=== PATIENT | male | born 1985 | race Caucasian/White ===

== ENCOUNTER 2017-01-04 17:52 | Emergency (ER) | payer OTHER ==
--- NOTE | 2017-01-04 18:33 | DIAGNOSTIC IMAGING REPORT ---
PROCEDURE: XR CHEST 1 VIEW INDICATION: CHEST PAIN TECHNIQUE: Portable AP view 06:25 p.m. COMPARISON: None. FINDINGS: Lungs are clear. Median sternotomy. Heart size, mediastinum and pulmonary vessels are normal. Thorax is normal. IMPRESSION: 1. Median sternotomy. 2. No acute changes
--- NOTE | 2017-01-04 19:05 | ED NURSING NOTES ---
Clinical Report - Nurses [facility] [address] [place] [address] 01/04/2017 17:53 Patient: SPARKLE AGGARWAL TRIAGE Triage time 17:58. Acuity: LEVEL 3. Chief Complaint: CHEST PAIN and DISCOMFORT and (At night, having pain. Having numbess and tingling in the fingers). Alert. No acute distress. --18:06 Muna Yates R.N. 18:00 01/04/17. BP: 141/77. HR: 82. RR: 20. O2 saturation: 98% on room air. Temp: 97.5 F. Pain level now: 03/07. --18:06 Muna Yates R.N. 18:00 01/04/17. BP: 141/77. HR: 82. RR: 20. O2 saturation: 98% on room air. Temp: 97.5 F. Pain level now: 03/07. --18:06 Muna Yates R.N. Weight: 104.3 kg stated. Height/Length: 70 inches Per Patient. BMI: 33. --18:00 Muna Yates R.N. Medications Lisinopril Oral (forget to take). Metoprolol Tartrate Oral not taking for last 2 years . --18:05 Muna Yates R.N. Allergies Morphine and Related. --18:06 Muna Yates R.N. History Arrived by private vehicle. Historian: patient. No primary care physician. This is a recurrent problem. Started while sleeping. He has had difficulty breathing and nausea. No vomiting. 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 PAST MEDICAL HX: Immunizations: status is unknown. SOCIAL HX: Smoker- current status unknown. Occasional alcohol use. History of drug use: marijuana. Recently used drugs yesterday. FALL RISK ASSESSMENT: Fall risk assessment completed. No fall risk identified. NUTRITIONAL RISK ASSESSMENT: The nutritional risk assessment revealed no deficiencies. FUNCTIONAL ASSESSMENT: Functional assessment: no impairments noted. LEARNING NEEDS ASSESSMENT: The learning needs assessment revealed no barriers. SKIN INTEGRITY ASSESSMENT: Skin integrity risk assessment completed. No skin integrity risk identified. --18:06 Muna Yates R.N. PROBLEMS: Heart Disease. --18:03 Muna Yates R.N. ADDITIONAL SURGERIES: Heart surg x 3 . --18:03 Muna Yates R.N. Interventions ID band on patient. To room. --18:06 Muna Yates R.N. PHYSICAL ASSESSMENT Ambulatory to room. Patient gowned. GENERAL / NEURO / PSYCH: Alert. Oriented X 4. Appears in pain and anxious. HEENT: Mucous membranes are pink. RESPIRATORY: Respirations not labored. CVS: Normal sinus rhythm noted. Cardiac rhythm: normal sinus rhythm; (80). Pulses within normal limits. Capillary refill less than 2 seconds. GI / : Abdomen nontender. SKIN: Skin is warm and dry. Normal skin turgor. Skin is non-tender. --18:07 Muna Yates R.N. NURSING PROGRESS NOTES compliance monitor, pulse oximeter and NIBP monitor placed on patient; conveyor monitor- Lead II; monitor alarms on. Patient gowned. Head of bed elevated. Two patient identifiers checked. Call light placed in reach. Side rails up x 1. Bed placed in lowest position. Brakes of bed on. Patient ready for evaluation. --18:07 Muna Yates R.N. 18:17 01/04/2017 Site #1 started via IV in the left upper arm with an 20g angiocath, with aseptic technique and good blood return; one attempt. Blood drawn: rainbow set. Labeled in the presence of the patient and sent to the lab. Saline lock flushed with 10 mL saline. --18:32 Muna Yates R.N. 18:39 01/04/2017 Toradol IVP 30 mg given over 1 minute(s) via site #1. Allergies verified and confirmed 5 rights. IV patency established. IV site checked: no pain, redness, or swelling. IV flushed thoroughly pre- and post-medication administration. IVP given by RN. --18:39 Muna Yates R.N. 18:39 01/04/17. BP: 136/87. HR: 78. RR: 20. O2 saturation: 98% on room air. 18:00 01/04/17. BP: 141/77. HR: 82. RR: 20. O2 saturation: 98% on room air. Temp: 97.5 F. Pain level now: 03/07. --18:39 Muna Yates R.N. EKG time: (1801). EKG was ordered, performed by a tech and shown to the ED physician. --18:43 Heather Maxwell, ER Tech1. DISPOSITION / DISCHARGE 19:15. Condition at departure: improved. No learning barriers present. Discharge instructions provided and reviewed with the patient. Patient verbalized understanding. Written instructions provided in Chilean. The patient was discharged home. He left the Emergency Department ambulatory and via private vehicle. Patient driving. Medication list reviewed and validated. --19:21 Muna Yates R.N. 19:19 01/04/17. BP: 118/69. HR: 78. RR: 18. O2 saturation: 99%. Temp: deferred. Pain level now: 09/07. 18:39 01/04/17. BP: 136/87. HR: 78. RR: 20. O2 saturation: 98% on room air. 18:00 01/04/17. BP: 141/77. HR: 82. RR: 20. O2 saturation: 98% on room air. Temp: 97.5 F. Pain level now: 03/07. --19:21 Muna Yates R.N. Locked/Released at 01/04/2017 19:22 by Muna Yates R.N.
--- NOTE | 2017-01-04 19:05 | ED CLINICAL REPORT ---
Clinical Report - Physicians/Mid Levels [facility] [address] [place] [address] 01/04/2017 17:53 Patient: SAPRKLE AGGARWAL Time Seen: 1808; initial patient contact, initial documentation, patient care assumed. Arrived- By private vehicle. Historian- patient. HISTORY OF PRESENT ILLNESS Chief Complaint: CHEST PAIN and DISCOMFORT. At its maximum, severity described as moderate. When seen in the E.D., severity described as moderate. Modifying factors- worsened by exertion and movement. Not relieved by anything. This started about 2 weeks ago and is still present. It was abrupt in onset and has been waxing/waning. Onset during sleep. It is described as pressure and tightness and it is described as located in the central chest area. No radiation. No nausea, vomiting or diaphoresis. He has had mild difficulty breathing on exertion. Similar symptoms previously: Recent medical care: Not recently seen/assessed. REVIEW OF SYSTEMS No fever, chills or pedal edema. He has had a cough productive of scant amounts of sputum (for 6 weeks ago). All systems otherwise negative, except as recorded above. PAST HISTORY See nurses notes. PROBLEMS: Heart Disease. --18:03 Muna Yates R.N. ADDITIONAL SURGERIES: Heart surg x 3 . --18:03 Muna Yates R.N. SOCIAL HISTORY Former smoker (says he quit smoking 6 wks ago). Occasional alcohol use. History of occasional drug use: marijuana. No recent travel. Is a local resident. FAMILY HISTORY Negative. ADDITIONAL NOTES The nursing notes have been reviewed with agreement regarding the chief complaint, HPI, ROS, PMH and patient medications and allergies. PHYSICAL EXAM Vital Signs: 01/04/2017 18:00 BP: 141/77. HR: 82. RR: 20. O2 saturation: 98%. Temp: 97.5 F. Pain level now: 7/10. Have been reviewed as normal and appear to be correct. Appearance: Alert. Oriented X3. No acute distress. Eyes: Pupils equal, round and reactive to light. Eyes normal inspection. Neck: Normal inspection. Neck supple. CVS: Normal heart rate and rhythm. Heart sounds normal. Pulses normal. Respiratory: No respiratory distress. Chest tender. Chest pain reproducible with palpation of the costal cartilage, sternum and anterior chest wall, with movement of the trunk and with deep breathing. Chest pain is not reproduced by palpation of the costochondral junction. Breath sounds normal. Back: Normal external inspection. Skin: Skin warm and dry. Normal skin color. No rash. Normal skin turgor. Extremities: Extremities exhibit normal ROM. No lower extremity edema. Neuro: Oriented X 3. No motor deficit. No sensory deficit. LABS, X-RAYS, AND EKG EKG: EKG time: (1800). No acute process. No acute ischemia. Normal EKG. Rate: 84. Normal EKG. (interpreted by dr puckett and reviewed by me). The EKG appears to be a good tracing. Interpretation time: 1802. Chest X-ray: Normal Chest X-Ray. (IMPRESSION: 1. Median sternotomy. 2. No acute changes Electronically Final signed by:Mukesh Pfeiffer MD 01/04/2017 6:33:00 PM). The X-rays were interpreted by the radiologist and contemporaneously by me. Interpretation time: 18:46. Laboratory Tests: CBC w Diff: (MARTHA: 01/04/2017 18:00) ( MsgRcvd 01/04/2017 18:33) Final results Test Result Flag Units (Reference) WHITE BLOOD COUNT 7.8 K/uL (4.5-11.5) RED BLOOD COUNT 4.43 L M/uL (4.50-5.90) HEMOGLOBIN 14.4 gm/dL (13.5-17.5) HEMATOCRIT 42.3 % (41.0-53.0) MEAN CELL VOLUME 95 fL (80-100) MEAN CORPUSCULAR HGB 32 pg (26-34) MEAN CORPUSCULAR HGB CONC 34 g/dL (31-37) RED CELL DISTRIBUTION WIDTH 13.4 % (11.6-14.8) PLATELET COUNT 264 K/uL (150-400) NEUTROPHIL % 59.1 % (50-75) LYMPH % 27.3 % (25-40) MONO % 11.5 % (3-14) EOSINOPHIL % 1.6 % (0-4) BASOPHIL % 0.5 % (0-2) CMP: (MARTHA: 01/04/2017 18:00) ( MsgRcvd 01/04/2017 18:47) Final results Test Result Flag Units (Reference) GLUCOSE 88 mg/dL (70-110) BUN 17 mg/dL (7-18) CREATININE 1.0 mg/dL (0.6-1.3) Estimated GFR >60 mL/min Estimated GFR- >60 mL/min Note: Persistent reduction over 3 months in eGFR<60 mL/min/1.73 m2 defines CKD. Patients with eGFR values>=60 mL/min/1.73 m2 may also have CKD if evidence ofpersistent proteinuria. Additional information may be foundat www.kidney.org. SODIUM 142 mmol/L (136-145) POTASSIUM 4.0 mmol/L (3.5-5.1) CHLORIDE 104 mmol/L (98-107) CARBON DIOXIDE 31 mmol/L (21-32) CALCIUM 8.5 mg/dL (8.5-10.1) TOTAL PROTEIN 7.4 g/dL (6.4-8.2) ALBUMIN 3.5 g/dL (3.3-5.0) BILIRUBIN, TOTAL 0.5 mg/dL (0.0-1.0) ALKALINE PHOSPHATASE 68 U/L (46-116) AST (SGOT) 25 U/L (15-37) ALT (SGPT) 52 U/L (12-78) CPK 217 U/L (24-260) TROPONIN I 0.07 ng/mL (0.00-1.5) TROPONIN REFERENCE RANGE:<0.1 NEGATIVE0.1-1.5 INDETERMINANT>1.5 POSITIVE . PROGRESS AND PROCEDURES Course of Care: 1900. pt very happy with test results, and did not want to wait til 1999 for 2nd set of enzymes, agreed to dc pt home, pt very thankful for the care. 01/04/2017 18:39 BP: 136/87. HR: 78. RR: 20. O2 saturation: 98%. Vital Signs: have been reviewed as normal and appear to be correct. Patient counseled in person regarding the patient's stable condition, test results and diagnosis. 19:00. Differential Diagnosis: I considered muscle strain, costochondritis, myositis, pleurisy, myocardial infarction, intermediate coronary syndrome, unstable angina, angina, aortic dissection, mitral valve prolapse, pulmonary embolism, pneumonia, lung cancer, gastroesophageal reflux disease, esophagitis and esophageal spasm as a possible cause of chest pain in this patient. This is a partial list of diagnoses considered. Above considerations are based on history, physical exam, reassessment, laboratory data, X-Ray data and EKG. Differential diagnosis was discussed with patient. Disposition: Discharged home in good and improved condition (19:04). Condition: good and stable. CLINICAL IMPRESSION Chest wall pain .12 lead EKG performed. INSTRUCTIONS Warnings: GENERAL WARNINGS: Return or contact your physician immediately if your condition worsens or changes unexpectedly, if not improving as expected, or if other problems arise. SPECIFICALLY, return if you develop chest, neck, jaw, shoulder, arm, or back pain, difficulty breathing, a fluttering sensation in your chest, lightheadedness, fainting, excessive fatigue, or sudden sweating. Follow-up: Follow up with your doctor in two days even if well. Call for an appointment. Summary of care provided to patient. Understanding of the discharge instructions verbalized by patient. (Electronically signed by Tammy Biggs A.R.N.P. 01/04/2017 20:19)
--- NOTE | 2017-01-04 19:05 | ED NURSING NOTES ---
Clinical Report - Nurses [facility] [address] [place] [address] 01/04/2017 17:53 Patient: SPARKLE AGGARWAL TRIAGE Triage time 17:58. Acuity: LEVEL 3. Chief Complaint: CHEST PAIN and DISCOMFORT and (At night, having pain. Having numbess and tingling in the fingers). Alert. No acute distress. --18:06 Muna Yates R.N. 18:00 01/04/17. BP: 141/77. HR: 82. RR: 20. O2 saturation: 98% on room air. Temp: 97.5 F. Pain level now: 03/07. --18:06 Muna Yates R.N. 18:00 01/04/17. BP: 141/77. HR: 82. RR: 20. O2 saturation: 98% on room air. Temp: 97.5 F. Pain level now: 03/07. --18:06 Muna Yates R.N. Weight: 104.3 kg stated. Height/Length: 70 inches Per Patient. BMI: 33. --18:00 Muna Yates R.N. Medications Lisinopril Oral (forget to take). Metoprolol Tartrate Oral not taking for last 2 years . --18:05 Muna Yates R.N. Allergies Morphine and Related. --18:06 Muna Yates R.N. History Arrived by private vehicle. Historian: patient. No primary care physician. This is a recurrent problem. Started while sleeping. He has had difficulty breathing and nausea. No vomiting. 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 PAST MEDICAL HX: Immunizations: status is unknown. SOCIAL HX: Smoker- current status unknown. Occasional alcohol use. History of drug use: marijuana. Recently used drugs yesterday. FALL RISK ASSESSMENT: Fall risk assessment completed. No fall risk identified. NUTRITIONAL RISK ASSESSMENT: The nutritional risk assessment revealed no deficiencies. FUNCTIONAL ASSESSMENT: Functional assessment: no impairments noted. LEARNING NEEDS ASSESSMENT: The learning needs assessment revealed no barriers. SKIN INTEGRITY ASSESSMENT: Skin integrity risk assessment completed. No skin integrity risk identified. --18:06 Muna Yates R.N. PROBLEMS: Heart Disease. --18:03 Muna Yates R.N. ADDITIONAL SURGERIES: Heart surg x 3 . --18:03 Muna Yates R.N. Interventions ID band on patient. To room. --18:06 Muna Yates R.N. PHYSICAL ASSESSMENT Ambulatory to room. Patient gowned. GENERAL / NEURO / PSYCH: Alert. Oriented X 4. Appears in pain and anxious. HEENT: Mucous membranes are pink. RESPIRATORY: Respirations not labored. CVS: Normal sinus rhythm noted. Cardiac rhythm: normal sinus rhythm; (80). Pulses within normal limits. Capillary refill less than 2 seconds. GI / : Abdomen nontender. SKIN: Skin is warm and dry. Normal skin turgor. Skin is non-tender. --18:07 Muna Yates R.N. NURSING PROGRESS NOTES phototypesetting equipment monitor, pulse oximeter and NIBP monitor placed on patient; monitoring analyst- Lead II; monitor alarms on. Patient gowned. Head of bed elevated. Two patient identifiers checked. Call light placed in reach. Side rails up x 1. Bed placed in lowest position. Brakes of bed on. Patient ready for evaluation. --18:07 Muna Yates R.N. 18:17 01/04/2017 Site #1 started via IV in the left upper arm with an 20g angiocath, with aseptic technique and good blood return; one attempt. Blood drawn: rainbow set. Labeled in the presence of the patient and sent to the lab. Saline lock flushed with 10 mL saline. --18:32 Muna Yates R.N. 18:39 01/04/2017 Toradol IVP 30 mg given over 1 minute(s) via site #1. Allergies verified and confirmed 5 rights. IV patency established. IV site checked: no pain, redness, or swelling. IV flushed thoroughly pre- and post-medication administration. IVP given by RN. --18:39 Muna Yates R.N. 18:39 01/04/17. BP: 136/87. HR: 78. RR: 20. O2 saturation: 98% on room air. 18:00 01/04/17. BP: 141/77. HR: 82. RR: 20. O2 saturation: 98% on room air. Temp: 97.5 F. Pain level now: 03/07. --18:39 Muna Yates R.N. EKG time: (1801). EKG was ordered, performed by a tech and shown to the ED physician. --18:43 Heather Maxwell, ER Tech1. DISPOSITION / DISCHARGE 19:15. Condition at departure: improved. No learning barriers present. Discharge instructions provided and reviewed with the patient. Patient verbalized understanding. Written instructions provided in Rwandan. The patient was discharged home. He left the Emergency Department ambulatory and via private vehicle. Patient driving. Medication list reviewed and validated. --19:21 Muna Yates R.N. 19:19 01/04/17. BP: 118/69. HR: 78. RR: 18. O2 saturation: 99%. Temp: deferred. Pain level now: 09/07. 18:39 01/04/17. BP: 136/87. HR: 78. RR: 20. O2 saturation: 98% on room air. 18:00 01/04/17. BP: 141/77. HR: 82. RR: 20. O2 saturation: 98% on room air. Temp: 97.5 F. Pain level now: 03/07. --19:21 Muna Yates R.N. Locked/Released at 01/04/2017 19:22 by Muna Yates R.N.
--- NOTE | 2017-01-04 19:05 | ED ORDER SUMMARY ---
..... Patient: SPARKLE AGGARWAL OrderSheet [facility] VisitID: [id number] [address] [place] [address] 31y, M Registration Date/Time: 01/04/2017 ORDER SHEET Weight: 104.3 kg (stated) Allergies: Morphine and Related GENERAL ORDERS: Chest 1V Urgent (18:18 01/04/2017 HBivens A.R.N.P.) (Ack 18:20 KHoerner) (18:28 KHoerner) CBC w Diff Urgent (18:18 01/04/2017 HBivens A.R.N.P.) (Ack 18:20 KHoerner) (18:30 SRoberts R.N.) CMP Urgent (18:18 01/04/2017 HBivens A.R.N.P.) (Ack 18:20 KHoerner) (18:30 SRoberts R.N.) BNP Urgent (18:18 01/04/2017 HBivens A.R.N.P.) (Ack 18:20 KHoerner) (18:30 SRoberts R.N.) CPK Urgent (18:18 01/04/2017 HBivens A.R.N.P.) (Ack 18:20 KHoerner) (18:31 SRoberts R.N.) Troponin-I Urgent (18:18 01/04/2017 HBivens A.R.N.P.) (Ack 18:20 KHoerner) (18:31 SRoberts R.N.) EKG - ER Stat (18:18 01/04/2017 HBivens A.R.N.P.) (18:20 LNations ER Tech1) CPK Urgent (19:00 01/04/2017 HBivens A.R.N.P.) (19:03 HBivens A.R.N.P.) (Cancelled: Other19:03 HBivens A.R.N.P.) Troponin-I Urgent (19:00 01/04/2017 HBivens A.R.N.P.) (19:03 HBivens A.R.N.P.) (Cancelled: Other19:03 HBivens A.R.N.P.) MEDICATION ORDERS: IV FLUIDS: Toradol IV 30 mg (NOW) (18:18 01/04/2017 HBivens A.R.N.P.) (Ack 18:32 SRoberts R.N.) (18:39 SRoberts R.N.) IV Saline Lock (18:18 01/04/2017 HBivens A.R.N.P.) (18:32 SRoberts R.N.) ORDER SHEET NOTES: [Electronically signed by Muna Yates R.N. (19:22 01/04/2017)] [Electronically signed by Tammy Biggs.N.PPatrick (20:19 01/04/2017)] [Electronically locked/signed by Muna Yates R.N. (19:22 01/04/2017)]
--- NOTE | 2017-01-04 19:05 | ED ORDER SUMMARY ---
..... Patient: SPARKLE AGGARWAL OrderSheet [facility] VisitID: [id number] [address] [place] [address] 31y, M Registration Date/Time: 01/04/2017 ORDER SHEET Weight: 104.3 kg (stated) Allergies: Morphine and Related GENERAL ORDERS: Chest 1V Urgent (18:18 01/04/2017 HBivens A.R.N.P.) (Ack 18:20 KHoerner) (18:28 KHoerner) CBC w Diff Urgent (18:18 01/04/2017 HBivens A.R.N.P.) (Ack 18:20 KHoerner) (18:30 SRoberts R.N.) CMP Urgent (18:18 01/04/2017 HBivens A.R.N.P.) (Ack 18:20 KHoerner) (18:30 SRoberts R.N.) BNP Urgent (18:18 01/04/2017 HBivens A.R.N.P.) (Ack 18:20 KHoerner) (18:30 SRoberts R.N.) CPK Urgent (18:18 01/04/2017 HBivens A.R.N.P.) (Ack 18:20 KHoerner) (18:31 SRoberts R.N.) Troponin-I Urgent (18:18 01/04/2017 HBivens A.R.N.P.) (Ack 18:20 KHoerner) (18:31 SRoberts R.N.) EKG - ER Stat (18:18 01/04/2017 HBivens A.R.N.P.) (18:20 LNations ER Tech1) CPK Urgent (19:00 01/04/2017 HBivens A.R.N.P.) (19:03 HBivens A.R.N.P.) (Cancelled: Other19:03 HBivens A.R.N.P.) Troponin-I Urgent (19:00 01/04/2017 HBivens A.R.N.P.) (19:03 HBivens A.R.N.P.) (Cancelled: Other19:03 HBivens A.R.N.P.) MEDICATION ORDERS: IV FLUIDS: Toradol IV 30 mg (NOW) (18:18 01/04/2017 HBivens A.R.N.P.) (Ack 18:32 SRoberts R.N.) (18:39 SRoberts R.N.) IV Saline Lock (18:18 01/04/2017 HBivens A.R.N.P.) (18:32 SRoberts R.N.) ORDER SHEET NOTES: [Electronically signed by Muna Yates R.N. (19:22 01/04/2017)] [Electronically signed by Tammy Biggs.N.PPatrick (20:19 01/04/2017)] [Electronically locked/signed by Muna Yates R.N. (19:22 01/04/2017)]
--- NOTE | 2017-01-04 20:20 | ED MED RECONCILIATION SUMMARY ---
Patient: SPARKLE AGGARWAL Medication Reconciliation Report [facility] VisitID: [id number] [address] [place] [address] 31y, M Registration Date/Time: 01/04/2017 Weight: 104.3 kg Height/Length: 70 in. BMI: 33.0 ALLERGIES: Morphine and Related The patient's Home Medications are listed below: THE FOLLOWING MEDICATIONS NEED TO BE RECONCILED: Lisinopril Oral, forget to take Metoprolol Tartrate Oral not taking for last 2 years The source(s) of the original Home Medication information: Not obtained. The following Medications were given to the patient in the Emergency Department: Toradol [IVP] IVP 30 mg, administered: 01/04/2017 6:39:00 PM The following Medications were prescribed to the patient: None.
--- NOTE | 2017-01-04 20:20 | ED MAR SUMMARY ---
..... Medication Administration Record [facility] [address] [place] [address] Patient: SPARKLE AGGARWAL Visit ID: [id number] 31y, M Weight: 104.3 kg Height/Length: 70 in BMI: 33 ALLERGIES: Morphine and Related Given 18:39 01/04/2017 Muna Yates R.N. Medication Administered: TORADOL [IVP], Dose: 30 mg IVP over 1 minute(s), Site: #1 left upper arm. Medication Ordered: Toradol IV 30 mg (NOW).
--- NOTE | 2017-01-04 20:20 | ED MAR SUMMARY ---
..... Medication Administration Record [facility] [address] [place] [address] Patient: SPARKLE AGGARWAL Visit ID: [id number] 31y, M Weight: 104.3 kg Height/Length: 70 in BMI: 33 ALLERGIES: Morphine and Related Given 18:39 01/04/2017 Muna Yates R.N. Medication Administered: TORADOL [IVP], Dose: 30 mg IVP over 1 minute(s), Site: #1 left upper arm. Medication Ordered: Toradol IV 30 mg (NOW).
--- NOTE | 2017-01-04 20:20 | ED DISCHARGE INSTRUCTIONS ---
Patient: SPARKLE AGGARWAL General Instructions [facility] VisitID: [id number] [place] [address] 31y, M Registration Date/Time: 01/04/2017 Chest wall pain .12 lead EKG performed. INSTRUCTIONS Warnings: GENERAL WARNINGS: Return or contact your physician immediately if your condition worsens or changes unexpectedly, if not improving as expected, or if other problems arise. SPECIFICALLY, return if you develop chest, neck, jaw, shoulder, arm, or back pain, difficulty breathing, a fluttering sensation in your chest, lightheadedness, fainting, excessive fatigue, or sudden sweating. Follow-up: Follow up with your doctor in two days even if well. Call for an appointment. Summary of care provided to patient. Understanding of the discharge instructions verbalized by patient. ADDITIONAL INFORMATION Chest Wall Pain: Costochondritis The chest pain that you have had today is caused by Costochondritis. This condition is due to an inflammation of the cartilage joining the ribs to the breastbone. It is not caused by heart or lung problems. Although the exact cause for costochondritis is not known, it often occurs during times of emotional stress. It can be painful, but it is not dangerous. It usually disappears within one to two weeks, but may recur. Rarely, a more serious condition may cause symptoms similar to costochondritis; therefore, watch for the warning signs listed below. Home Care: If you feel that emotional stress is a cause of your condition, try to identify sources of that stress. It may not be obvious! Learn ways to deal with the stress in your life such as regular exercise, muscle relaxation, meditation, or simply taking time out for yourself. For more information about this, consult your doctor or go to a local bookstore and review books and tapes available on the subject of stress reduction. You may use acetaminophen (Tylenol) or ibuprofen (Motrin, Advil) to control pain, unless another pain medicine was prescribed. [ NOTE: If you have liver disease or ever had a stomach ulcer, talk with your doctor before using these medicines.] The use of heat (hot wet compress or heating pad) with or without local analgesic creams (Deep Heat Rub, Arvin Daigle) will be helpful to reduce pain. Follow Up with your doctor as directed or sooner if you do not start to improve within the next two days. Get Prompt Medical Attention if any of the following occur: A change in the type of pain: if it feels different, becomes more severe, lasts longer, or spreads into your shoulder, arm, neck, jaw or back Shortness of breath or increased pain with breathing Weakness, dizziness, or fainting Cough with dark colored sputum (phlegm) or blood Abdominal pain Dark red or black stools Fever of 100.4F (38C) or higher, or as directed by your healthcare provider You have been given the following additional information: Chest Wall Pain, Costochondritis (Electronically signed by Tammy Biggs A.R.N.P. 01/04/2017 20:19)
--- NOTE | 2017-01-04 20:20 | ED MED RECONCILIATION SUMMARY ---
Patient: SPARKLE AGGARWAL Medication Reconciliation Report [facility] VisitID: [id number] [address] [place] [address] 31y, M Registration Date/Time: 01/04/2017 Weight: 104.3 kg Height/Length: 70 in. BMI: 33.0 ALLERGIES: Morphine and Related The patient's Home Medications are listed below: THE FOLLOWING MEDICATIONS NEED TO BE RECONCILED: Lisinopril Oral, forget to take Metoprolol Tartrate Oral not taking for last 2 years The source(s) of the original Home Medication information: Not obtained. The following Medications were given to the patient in the Emergency Department: Toradol [IVP] IVP 30 mg, administered: 01/04/2017 6:39:00 PM The following Medications were prescribed to the patient: None.
== END 2017-01-04 19:15 | disposition home or self-care (01) ==
LOC: ED SRH 17:52 → EDBD 17:54 → ED SRH 17:54
DX: R07.89 Other chest pain (principal); Z87.891 Personal history of nicotine dependence; Z79.899 Other long term (current) drug therapy; Z88.5 Allergy status to narcotic agent
CPT/HCPCS: 90100; 90616; 91320; 92610; 95059